=== PATIENT | female | born 1995 | race Caucasian/White ===

== ENCOUNTER 2021-12-07 12:29 | Emergency (ER) | payer OTHER ==
[2021-12-07 14:08] LABS: ALBUMIN 4.1 g/dL (3.4-5.0); BILIRUBIN - TOTAL 0.4 mg/dL (0.2-1.0); CREATININE 0.7 mg/dL (0.51-0.95); GLOBULIN (CALCULATION) 3.7 g/dL; POTASSIUM 3.5 mmol/L (3.5-5.1); TOTAL PROTEIN 7.8 g/dL (6.4-8.2)
[2021-12-07 14:12] LABS: BASOPHIL 0.3 % (0-2); EOSINOPHIL 0.4 % (0-5); HCT 40.3 % (37.0-47.0); HGB 12.5 g/dl (12.5-16.0); LYMPHOCYTE 18.8 % (15-48); MCH 26.7 pg (25.0-31.0); MCV 86.1 fL (78.0-100.0); MONOCYTE 6.9 % (0-12); NEUTROPHIL 73.2 % (41-80); NRBC 0; PLT 281 K/uL (150-400); RBC 4.68 M/uL (4.20-5.40); RDW 13.7 % (11.5-14.0)
[2021-12-07 14:15] LABS: BILIRUBIN NEGATIVE (NEGATIVE); BLOOD 3+ Ery/uL (NEGATIVE); COLOR YELLOW (YELLOW); GLUCOSE (U) NORMAL (NORMAL); LEUKOCYTES TRACE Leu/uL (NEGATIVE); NITRITE NEGATIVE (NEGATIVE); PROTEIN 1+ mg/dL (NEGATIVE); SPECIFIC GRAVITY 1.015 (1.001-1.030); UROBILINOGEN 0.2 mg/dL (0.2-1.0); pH 8.5 (5.0-9.0)
[2021-12-07 14:23] LABS: CLARITY HAZY (CLEAR)
[2021-12-07 14:24] LABS: BACTERIA 1+; URINARY RBC TNTC
[2021-12-07 14:25] LABS: MUCOUS TRACE
[2021-12-07] MEDS ORDERED: PEPCID AC20 MG PO (16:09)
[2021-12-07] MEDS ORDERED: ONDANSETRON ODT4 MG PO (16:09)
== END 2021-12-07 16:22 | disposition home or self-care (01) ==
LOC: FER 12:29
PROVIDERS: Physician Assistant
DX: R10.9 Unspecified abdominal pain (principal); R11.2 Nausea with vomiting, unspecified
CPT/HCPCS: 36415; 80053; 81001; 83690; 85025; J2405; J7030; Q9967